=== PATIENT | female | born 1955 | race African-American/Black ===

== ENCOUNTER 2018-03-23 14:18 | Emergency (ER) | payer MEDICARE ==
[~2018-03-23] VITALS: Ht 160 cm; Wt 128.2 kg
[~2018-03-23 14:18] MED LIST: K-DUR20 MEQ; LASIX40 MG PO; METOPROLOL TAR100 MG PO
[2018-03-23 14:23] VITALS: Ht 160 cm; Wt 128.2 kg
[2018-03-23] MEDS ORDERED: [UNRECOGNIZED DRUG - REMARK] (14:24)
[2018-03-23] MEDS ORDERED: DOXYCYCLINE HY100 M2 PO (15:33)
[2018-03-23] MEDS ORDERED: PREDNISONE20 MG PO (15:33)
[2018-03-23 15:51] VITALS: BP 150/62
== END 2018-03-23 15:52 | disposition home or self-care (01) ==
LOC: D.ER 14:18
DX: J02.9 Acute pharyngitis, unspecified (principal); H92.02 Otalgia, left ear; E11.9 Type 2 diabetes mellitus without complications; I10 Essential (primary) hypertension

== ENCOUNTER 2019-05-07 13:41 | Emergency (ER) | payer MEDICARE ==
[~2019-05-07] VITALS: Ht 157.5 cm; Wt 125.5 kg
[~2019-05-07 13:41] MED LIST changes: +DOXYCYCLINE HY100 M2 PO; +PREDNISONE20 MG PO; +[UNRECOGNIZED DRUG - REMARK]
[2019-05-07 13:54] VITALS: Ht 157.5 cm; Wt 125.5 kg
[2019-05-07] MEDS ORDERED: ZPAK PO (16:03)
[2019-05-07] MEDS ORDERED: BACLOFEN20 M1 PO (16:03)
[2019-05-07] MEDS ORDERED: MUCINEX DM ER1 EAC1 PO (16:03)
[2019-05-07 16:14] VITALS: BP 145/75
== END 2019-05-07 16:14 | disposition home or self-care (01) ==
LOC: D.ER 13:41
DX: M79.18 Myalgia, other site (principal); V49.40XA Driver injured in collision with unspecified motor vehicles in traffic accident, initial encounter; Y93.9 Activity, unspecified; Y92.9 Unspecified place or not applicable; M25.511 Pain in right shoulder; M54.2 Cervicalgia; M54.5 Low back pain; E11.9 Type 2 diabetes mellitus without complications; I10 Essential (primary) hypertension

== ENCOUNTER 2019-12-30 12:27 | Emergency (ER) | payer MEDICARE ==
[~2019-12-30] VITALS: Ht 160 cm; Wt 122.7 kg
[~2019-12-30 12:27] MED LIST changes: +BACLOFEN20 M1 PO; +MUCINEX DM ER1 EAC1 PO; +ZPAK PO
[2019-12-30 12:47] VITALS: Ht 160 cm; Wt 122.7 kg
[2019-12-30] MEDS ORDERED: BACLOFEN20 M1 PO (14:25)
[2019-12-30] MEDS ORDERED: NAPROSYN500 MG PO (14:25)
== END 2019-12-30 15:15 | disposition home or self-care (01) ==
LOC: D.ER 12:27
DX: S46.912A Strain of unspecified muscle, fascia and tendon at shoulder and upper arm level, left arm, initial encounter (principal); V89.2XXA Person injured in unspecified motor-vehicle accident, traffic, initial encounter; Y93.9 Activity, unspecified; Y92.9 Unspecified place or not applicable; E11.9 Type 2 diabetes mellitus without complications; I10 Essential (primary) hypertension; M25.512 Pain in left shoulder